=== PATIENT | female | born 1980 | race American Indian/Alaskan Native ===

== ENCOUNTER 2016-09-02 18:18 | Emergency (ER) | payer SELFPAY ==
[2016-09-02 20:58] LABS: Hematocrit 44.4 % (30.3-42.9); Hemoglobin 14.2 gm/dl (10.1-14.3); Mean Corpuscular HGB Conc 32 % (30-34); Mean Corpuscular Hemoglobin 29 pg (28-32); Mean Corpuscular Volume 92 fl (79-97); Platelet Count 138 K/mm3 (140-440); Red Blood Count 4.83 M/mm3 (3.65-5.03)
[2016-09-02 21:04] LABS: White Blood Count 21.1 K/mm3 (4.5-11.0)
[2016-09-02 21:09] LABS: Anion Gap 20 mmol/L; BUN/Creatinine Ratio 8.75; Blood Urea Nitrogen 7 mg/dL (7-17); Calcium 8.7 mg/dL (8.4-10.2); Carbon Dioxide 19 mmol/L (22-30); Chloride 99.6 mmol/L (98-107); Glucose 128 mg/dL (65-100); Potassium 3.8 mmol/L (3.6-5.0); Sodium 135 mmol/L (137-145)
--- NOTE | 2016-09-02 21:20 | Emergency Department Report ---
- General Chief Complaint: Upper Respiratory Infection Stated Complaint: FEVER/BODYACHES/CHILLS/WEAK Time Seen by Provider: 09/02/16 21:15 Source: patient Mode of arrival: Ambulatory Limitations: No Limitations - History of Present Illness Initial Comments: 36-year-old female past medical history none presents with complaint of 2 days of fever chills and productive cough with greenish yellow sputum. Patient states she feels congested denies chest pain or palpitations, complaining of diffuse body aches and sore throat. Patient states she recently traveled to [place] less than a week ago. Denies any nausea or vomiting no abdominal pain. Denies smoking MD Complaint: fever, cough, sore throat, rhinorrhea Onset/Timin -: days(s) Severity: moderate Consistency: constant Worsens With: nothing Context: recent travel Associated Symptoms: fever, chills, cough - Related Data Previous Rx's Medication Instructions Recorded Last Taken Type ALBUTEROL Inhaler [ProAir HFA 2 puff IH QID PRN #1 inhalation 09/02/16 Unknown Rx Inhaler] Azithromycin [Zithromax TAB] 250 mg PO QDAY #4 tablet 09/02/16 Unknown Rx Ibuprofen [Motrin] 600 mg PO Q8H PRN #30 tablet 09/02/16 Unknown Rx guaiFENesin DM [Robitussin Dm] 10 ml PO Q6HR PRN #1 bottle 09/02/16 Unknown Rx Allergies Allergy/AdvReac Type Severity Reaction Status Date / Time No Known Allergies Allergy Unverified 09/02/16 20:03 ED Review of Systems ROS: Stated complaint: FEVER/BODYACHES/CHILLS/WEAK Other details as noted in HPI Constitutional: denies: chills, fever Eyes: denies: eye pain, eye discharge, vision change ENT: denies: ear pain, throat pain Respiratory: cough. denies: shortness of breath, wheezing Cardiovascular: denies: chest pain, palpitations Endocrine: no symptoms reported Gastrointestinal: denies: abdominal pain, nausea, diarrhea Genitourinary: denies: urgency, dysuria, discharge Musculoskeletal: denies: back pain, joint swelling, arthralgia Skin: denies: rash, lesions Neurological: denies: headache, weakness, paresthesias Psychiatric: denies: anxiety, depression Hematological/Lymphatic: denies: easy bleeding, easy bruising ED Past Medical Hx - Past Medical History Previous Medical History?: No Hx Diabetes: No - Surgical History Additional Surgical History: ectopic - Social History Smoking Status: Current Every Day Smoker Substance Use Type: None - Medications Home Medications: Home Medications Medication Instructions Recorded Confirmed Last Taken Type ALBUTEROL Inhaler [ProAir HFA 2 puff IH QID PRN #1 inhalation 09/02/16 Unknown Rx Inhaler] Azithromycin [Zithromax TAB] 250 mg PO QDAY #4 tablet 09/02/16 Unknown Rx Ibuprofen [Motrin] 600 mg PO Q8H PRN #30 tablet 09/02/16 Unknown Rx guaiFENesin DM [Robitussin Dm] 10 ml PO Q6HR PRN #1 bottle 09/02/16 Unknown Rx ED Physical Exam - General Limitations: No Limitations General appearance: alert, in no apparent distress - Head Head exam: Present: atraumatic, normocephalic - Eye Eye exam: Present: normal appearance - ENT ENT exam: Present: mucous membranes moist - Neck Neck exam: Present: normal inspection - Respiratory Respiratory exam: Present: rhonchi (mild rhonchi left lower lung field). Absent : respiratory distress - Cardiovascular Cardiovascular Exam: Present: regular rate, normal rhythm. Absent: systolic murmur, diastolic murmur, rubs, gallop - GI/Abdominal GI/Abdominal exam: Present: soft, normal bowel sounds - Extremities Exam Extremities exam: Present: normal inspection - Back Exam Back exam: Present: normal inspection - Neurological Exam Neurological exam: Present: alert, oriented X3 - Psychiatric Psychiatric exam: Present: normal affect, normal mood - Skin Skin exam: Present: warm, dry, intact, normal color. Absent: rash ED Course Vital Signs 09/02/16 19:57 Temperature 99.7 F H Pulse Rate 125 H Respiratory 18 Rate Blood Pressure 131/79 O2 Sat by Pulse 98 Oximetry ED Medical Decision Making - Lab Data Result diagrams: 09/02/16 20:25 09/02/16 20:25 - Medical Decision Making A/P: Community acquired pneumonia 1-chest x-ray shows infiltrates consistent with patient's symptoms. 2-I will treat patient empirically with 1 dose of IV ceftriaxone, well-hydrated patient with 1 L of saline and start on by mouth azithromycin 3- PORT/PSI Score: 37 points Risk Class II, 0.6-0.9% mortality. Outpatient treatment reasonable, barring other factors affecting care. 4-patient is tolerating by mouth, patient clinically stable enough to discharge on outpatient regimen for community-acquired pneumonia, as patient does not currently have a primary doctor I will refer her to one. 5- advised patient to return to the ED if her symptoms worsen spite use of anti- inflammatories and antibiotics. 6- Case d/w Dr. Echevarria before discharge Critical care attestation.: If time is entered above; I have spent that time in minutes in the direct care of this critically ill patient, excluding procedure time. ED Disposition Clinical Impression: Community acquired pneumonia Disposition: DISCHARGED TO HOME OR SELFCARE Is pt being admited?: No Does the pt Need Aspirin: No Condition: Stable Instructions: Community-acquired Pneumonia (ED) Prescriptions: ALBUTEROL Inhaler [ProAir HFA Inhaler] 2 puff IH QID PRN #1 inhalation PRN Reason: Shortness Of Breath Azithromycin [Zithromax TAB] 250 mg PO QDAY #4 tablet guaiFENesin DM [Robitussin Dm] 10 ml PO Q6HR PRN #1 bottle PRN Reason: Cough Ibuprofen [Motrin] 600 mg PO Q8H PRN #30 tablet PRN Reason: Fever Referrals: [facility] [Outside] - 3-5 Days Forms: Work/School Release Form(ED), Accompanied Note Time of Disposition: 23:18
[2016-09-02 21:35] LABS: Bilirubin,Urine NEG (Negative); Blood,Urine NEG (Negative); Ketones,Urine NEG (Negative); Leukocyte Esterase,Urine NEG (Negative); Mucus,Urine FEW /HPF; Nitrite,Urine NEG (Negative); Protein,Urine <15 mg/dL mg/dL (Negative); Urobilinogen,Urine < 2.0 mg/dL (<2.0)
[2016-09-02 21:38] LABS: Basophils % (Manual) 0 % (0.0-1.8); Blastocytes % (Manual) 0 %; Eosinophils % (Manual) 0 % (0.0-4.3)
[2016-09-02 21:39] LABS: RBC Morphology Normal
[2016-09-02 21:40] LABS: Diff Status Complete; Large Platelets Few; Platelet Estimate Consistent w Auto
[2016-09-02] MEDS ORDERED: MOTRIN PO ONE (21:45)
--- NOTE | 2016-09-02 22:19 | XRay Report ---
FINAL REPORT PROCEDURE: XR CHEST ROUTINE 2V TECHNIQUE: PA and lateral chest radiographs were obtained. CPT 50487 HISTORY: fever, cough producitve ? PNA COMPARISON: No prior studies are available for comparison. FINDINGS: Heart: Normal. Mediastinum/Vessels: Normal. Lungs/Pleural space: The lungs are well-expanded. There are faint infiltrates in the right upper lung and left lower lung. There are no effusions or pneumothoraces.. Bony thorax: No acute osseous abnormality. Other: IMPRESSION: The heart size is normal.. The lungs are well-expanded. There are faint infiltrates in the right upper lung and left lower lung. There are no effusions or pneumothoraces..
[2016-09-02] MEDS ORDERED: ZITHROMAX PO ONE (22:22)
[2016-09-02] MEDS ORDERED: ROCEPHIN/NS 1 GM/50 ML 1 GM/50 ML BAG IV ONE (22:23)
[2016-09-02] MEDS ORDERED: NACL 0.9% 1000 ML 1,000 ML IV ONE (22:23)
[2016-09-03 01:04] VITALS: BP 126/89
== END 2016-09-03 01:07 | disposition home or self-care (01) ==
LOC: ED 18:18
DX: J18.9 Pneumonia, unspecified organism (principal); F17.200 Nicotine dependence, unspecified, uncomplicated
CPT/HCPCS: 36415; 71020; 80048; 81001; 81025; 82805; 85007; 85025; 87116; 87400; 87430; 96365; 99284; J0696; J7030